=== PATIENT | male | born 1940 | race Caucasian/White ===

== ENCOUNTER 2021-08-08 10:55 | Emergency (ER) | payer OTHER, MEDICAID ==
[~2021-08-08] VITALS: Ht 180.3 cm; Wt 117.9 kg
[2021-08-08 10:57] VITALS: BP 113/85
--- NOTE | 2021-08-08 11:41 | NUR ---
Patient being evaluated by physician at bedside.
[2021-08-08] MEDS ORDERED: IBUPROFEN 400 MG TAB PO ONE (11:50)
[2021-08-08] MEDS ORDERED: NAPR-1704 PO (11:56)
[2021-08-08 12:43] VITALS: BP 113/85
--- NOTE | 2021-08-08 12:43 | NUR ---
Patient discharged with v/s stable. Written and verbal after care instructions given and explained. Patient alert, oriented and verbalized understanding of instructions. Wheel Chair Assisted with to car. All questions addressed prior to discharge. ID band removed. Patient advised to follow up with PMD. Rx of NAPROXEN given. Patient educated on indication of medication including possible reaction and side effects. Opportunity to ask questions provided and answered.
== END 2021-08-08 12:43 | disposition home or self-care (01) ==
LOC: MED 10:55
DX: H92.02 Otalgia, left ear (principal); R05.9 Cough, unspecified; I11.9 Hypertensive heart disease without heart failure
CPT/HCPCS: 99282

== ENCOUNTER 2021-09-15 12:36 | Emergency (ER) | payer OTHER ==
[~2021-09-15] VITALS: Ht 175.3 cm; Wt 108.9 kg
[~2021-09-15 12:36] MED LIST: NAPR-1704 PO
[2021-09-15 12:50] VITALS: BP 132/64
--- NOTE | 2021-09-15 12:54 | NUR ---
PT BIB BLS RUN FROM [facility] C/C RIGHT RIB PAIN. PT C/O RIGHT RIB PAIN WORSE ON INSPIRATION NOTED WITH DRY COUGH. EXERTIONAL SOB NOTED FROM EMT EDOUARDRCARLOS TO ER JESE. 96% ON RA.
[2021-09-15] MEDS ORDERED: MORPHINE SULFATE 4 MG/ML SYR IVP ONE (14:05)
[2021-09-15 15:02] LABS: BASOPHILS # (AUTO) 0.1 K/uL (0.00-0.22); BASOPHILS % (AUTO) 0.7 % (0.0-2.0); EOSINOPHILS # (AUTO) 0.5 K/uL (0-0.4); EOSINOPHILS % (AUTO) 4.9 % (0.0-4.0); HEMATOCRIT 40.9 % (36-52); HEMOGLOBIN 13.7 g/dL (12.0-18.0); LYMPHOCYTES # (AUTO) 0.8 K/uL (2.0-11.5); MEAN CORPUSCULAR HEMOGLOBIN 29 pg (27-31); MEAN CORPUSCULAR HGB CONC 34 g/dL (33-37); MEAN CORPUSCULAR VOLUME 85.5 fL (80-94); MONOCYTES # (AUTO) 0.5 K/uL (0.8-1.0); MONOCYTES % (AUTO) 5.5 % (1.7-9.3); NEUTROPHILS # (AUTO) 7.6 K/uL (1.8-7.7); NEUTROPHILS % (AUTO) 80.9 % (42.2-75.2); PLATELET COUNT (AUTO) 256 K/uL (140-450); RED BLOOD CELL COUNT(AUTO) 4.78 MIL/uL (4.20-6.10); RED CELL DISTRIBUTION WIDTH 14.4 % (11.6-13.7); WHITE BLOOD COUNT (AUTO) 9.4 K/uL (4.8-10.8)
[2021-09-15 15:28] LABS: BILIRUBIN,URINE NEGATIVE (NEGATIVE); BLOOD, URINE TRACE-I (NEGATIVE); COLOR,URINE YELLOW (YELLOW); LEUKOCYTE ESTERASE ,URINE 2+ (NEGATIVE); NITRITE, URINE NEGATIVE (NEGATIVE); PH,URINE 5.5 (5.0-9.0); UGLUCOSE NEGATIVE (NEGATIVE)
[2021-09-15 15:33] LABS: APPEARANCE,URINE HAZY (CLEAR)
[2021-09-15 15:35] LABS: ANION GAP 12.5 (8-16); ASPARTATE AMINOTRANSFERASE 20 U/L (15-37); CARBON DIOXIDE 28.7 mmol/L (21-32); CHLORIDE 102 mmol/L (98-107); CREATININE 1.1 mg/dL (0.6-1.3); GLUCOSE 106 mg/dL (74-106); LIPASE 163 U/L (73-393); POTASSIUM 4.2 mmol/L (3.5-5.1); SODIUM SERUM 139 mmol/L (136-145); TOTAL BILIRUBIN 0.3 mg/dL (0.0-1.0); UREA NITROGEN, BLOOD 17 mg/dL (7-18)
[2021-09-15 15:38] LABS: RBC,URINE 0-5 /HPF (0-5); WBC,URINE TOO MANY TO COUNT /HPF (0-5)
[2021-09-15] MEDS ORDERED: LIDOCAINE 5% 1 EA PATCH TP STA (17:56)
[2021-09-15] MEDS ORDERED: LEVO750T51 PO (18:08)
[2021-09-15] MEDS ORDERED: LID5T TP (18:08)
[2021-09-15] MEDS ORDERED: FAMO-90 PO (18:08)
[2021-09-15] MEDS ORDERED: ACET-1194 PO (18:08)
[2021-09-15] MEDS ORDERED: cefTRIAXone 1,000 MG VIAL ONE (18:14)
[2021-09-15 18:37] VITALS: BP 132/70
--- NOTE | 2021-09-15 18:37 | NUR ---
Patient discharged with v/s stable. Written and verbal after care instructions given and explained. Patient alert, oriented and verbalized understanding of instructions. with to car. All questions addressed prior to discharge. ID band removed. Patient advised to follow up with PMD. Rx given. Patient educated on indication of medication including possible reaction and side effects. Opportunity to ask questions provided and answered.
== END 2021-09-15 18:37 | disposition home or self-care (01) ==
LOC: MED 12:36
DX: R07.81 Pleurodynia (principal); R07.9 Chest pain, unspecified
CPT/HCPCS: 36415; 71045; 76705; 80053; 81001; 83690; 85025; 87086; 93005; 96365; 96375; 99285; J0696; J2270; Q0092

== ENCOUNTER 2021-12-31 15:26 | Emergency (ER) | payer OTHER, MEDICAID ==
[~2021-12-31] VITALS: Ht 177.8 cm; Wt 108.9 kg
[~2021-12-31 15:26] MED LIST changes: +ACET-1194 PO; +FAMO-90 PO; +LEVO750T51 PO; +LID5T TP
[2021-12-31 15:40] VITALS: BP 141/56
[2021-12-31 16:13] LABS: BASOPHILS % (AUTO) 0.3 % (0.0-2.0); EOSINOPHILS # (AUTO) 0.1 K/uL (0-0.4); HEMATOCRIT 40.1 % (36-52); HEMOGLOBIN 13.3 g/dL (12.0-18.0); LYMPHOCYTES # (AUTO) 3.2 K/uL (2.0-11.5); LYMPHOCYTES % (AUTO) 31.6 % (20.5-51.1); MEAN CORPUSCULAR HEMOGLOBIN 29 pg (27-31); MEAN CORPUSCULAR HGB CONC 33 g/dL (33-37); MEAN CORPUSCULAR VOLUME 86.5 fL (80-94); MONOCYTES # (AUTO) 1.6 K/uL (0.8-1.0); NEUTROPHILS # (AUTO) 5.1 K/uL (1.8-7.7); NEUTROPHILS % (AUTO) 51.1 % (42.2-75.2); PLATELET COUNT (AUTO) 236 K/uL (140-450); RED BLOOD CELL COUNT(AUTO) 4.63 MIL/uL (4.20-6.10); RED CELL DISTRIBUTION WIDTH 13.8 % (11.6-13.7); WHITE BLOOD COUNT (AUTO) 10.1 K/uL (4.8-10.8)
[2021-12-31 16:37] LABS: ANION GAP 12.4 (8-16); ASPARTATE AMINOTRANSFERASE 18 U/L (15-37); CARBON DIOXIDE 26.7 mmol/L (21-32); CHLORIDE 103 mmol/L (98-107); CREATININE 1.2 mg/dL (0.6-1.3); GLUCOSE 109 mg/dL (74-106); POTASSIUM 4.1 mmol/L (3.5-5.1); SODIUM SERUM 138 mmol/L (136-145); TOTAL BILIRUBIN 0.3 mg/dL (0.0-1.0); UREA NITROGEN, BLOOD 15 mg/dL (7-18)
[2021-12-31 22:23] VITALS: BP 131/53
== END 2021-12-31 22:22 | disposition home or self-care (01) ==
LOC: MED 15:26
DX: R06.02 Shortness of breath (principal); Z20.822 Contact with and (suspected) exposure to COVID-19; I11.0 Hypertensive heart disease with heart failure; I50.9 Heart failure, unspecified; Z87.448 Personal history of other diseases of urinary system; Z79.899 Other long term (current) drug therapy; Z79.2 Long term (current) use of antibiotics; Z79.1 Long term (current) use of non-steroidal anti-inflammatories (NSAID)
CPT/HCPCS: 36415; 71045; 80053; 83605; 83880; 84484; 85025; 87040; 93005; 99285

== ENCOUNTER 2023-05-03 07:50 | Emergency (ER) | payer OTHER ==
[~2023-05-03] VITALS: Ht 170.2 cm; Wt 108.9 kg
[~2023-05-03 07:50] MED LIST changes: -LEVO750T51 PO; +LEVO750T75 PO
[2023-05-03 07:54] VITALS: BP 120/74; PULSE 62; RESP 18; TEMP 98.5; O2SAT 98
[2023-05-03] MEDS ORDERED: HYDROcodone/APAP 5/325 MG 1 TAB TAB PO ONE (08:15)
[2023-05-03] MEDS ORDERED: KETOROLAC 30 MG/ML VIAL IM ONE (08:15)
[2023-05-03 08:20] VITALS: O2SAT 98
[2023-05-03 09:05] LABS: BASOPHILS # (AUTO) 0.1 K/uL (0.00-0.22); BASOPHILS % (AUTO) 0.7 % (0.0-2.0); EOSINOPHILS # (AUTO) 0.1 K/uL (0-0.4); EOSINOPHILS % (AUTO) 1.2 % (0.0-4.0); HEMATOCRIT 36.7 % (36-52); HEMOGLOBIN 12.2 g/dL (12.0-18.0); LYMPHOCYTES % (AUTO) 31.2 % (20.5-51.1); MEAN CORPUSCULAR HEMOGLOBIN 29 pg (27-31); MEAN CORPUSCULAR HGB CONC 33 g/dL (33-37); MEAN CORPUSCULAR VOLUME 87.1 fL (80-94); MONOCYTES # (AUTO) 1.5 K/uL (0.8-1.0); MONOCYTES % (AUTO) 15.5 % (1.7-9.3); NEUTROPHILS # (AUTO) 4.9 K/uL (1.8-7.7); NEUTROPHILS % (AUTO) 51.4 % (42.2-75.2); PLATELET COUNT (AUTO) 240 K/uL (140-450); RED BLOOD CELL COUNT(AUTO) 4.21 MIL/uL (4.20-6.10); RED CELL DISTRIBUTION WIDTH 14.4 % (11.6-13.7); WHITE BLOOD COUNT (AUTO) 9.5 K/uL (4.8-10.8)
[2023-05-03 09:30] LABS: C-REACTIVE PROTEIN QUANT < 0.2 mg/dL (0.0-0.9)
[2023-05-03 09:34] LABS: ALANINE AMINOTRANSFERASE 27 U/L (12-78); ALBUMIN 3.8 g/dL (3.4-5.0); ALKALINE PHOSPHATASE 58 U/L (50-136); ANION GAP 11.4 (8-16); ASPARTATE AMINOTRANSFERASE 21 U/L (15-37); CALCIUM 9.2 mg/dL (8.5-10.1); CARBON DIOXIDE 28.1 mmol/L (21-32); CHLORIDE 105 mmol/L (98-107); CREATININE 1.4 mg/dL (0.6-1.3); GLUCOSE 120 mg/dL (74-106); POTASSIUM 4.5 mmol/L (3.5-5.1); SODIUM SERUM 140 mmol/L (136-145); TOTAL BILIRUBIN 0.4 mg/dL (0.0-1.0); TOTAL PROTEIN, SERUM 7.1 g/dL (6.4-8.2); UREA NITROGEN, BLOOD 32 mg/dL (7-18)
[2023-05-03] MEDS ORDERED: DICL100G32 TP (10:18)
[2023-05-03] MEDS ORDERED: IBUP-1842 PO (10:18)
[2023-05-03 11:01] VITALS: BP 134/80; PULSE 71; RESP 17; O2SAT 98
== END 2023-05-03 11:01 | disposition home or self-care (01) ==
LOC: MED 07:50
DX: M75.102 Unspecified rotator cuff tear or rupture of left shoulder, not specified as traumatic (principal); I44.0 Atrioventricular block, first degree; M19.90 Unspecified osteoarthritis, unspecified site; I11.0 Hypertensive heart disease with heart failure; I50.9 Heart failure, unspecified; Z87.448 Personal history of other diseases of urinary system; Z79.899 Other long term (current) drug therapy; Z79.1 Long term (current) use of non-steroidal anti-inflammatories (NSAID); Z79.2 Long term (current) use of antibiotics
CPT/HCPCS: 36415; 71045; 73030; 80053; 83880; 84484; 85025; 85651; 86140; 93005; 96372; 99285; J1885

== ENCOUNTER 2023-05-16 03:50 | Emergency (ER) | payer OTHER ==
[~2023-05-16] VITALS: Ht 170.2 cm; Wt 97.5 kg
[2023-05-16 03:50] VITALS: BP 113/52; PULSE 62; RESP 16; TEMP 97.8; O2SAT 96
[~2023-05-16 03:50] MED LIST changes: +DICL100G32 TP; +IBUP-1842 PO
[2023-05-16] MEDS ORDERED: KETOROLAC 30 MG/ML VIAL IVP ONE (05:25)
[2023-05-16 06:28] LABS: BASOPHILS # (AUTO) 0.1 K/uL (0.00-0.22); BASOPHILS % (AUTO) 0.7 % (0.0-2.0); EOSINOPHILS # (AUTO) 0.1 K/uL (0-0.4); EOSINOPHILS % (AUTO) 1.2 % (0.0-4.0); HEMATOCRIT 36.7 % (36-52); HEMOGLOBIN 12.2 g/dL (12.0-18.0); LYMPHOCYTES # (AUTO) 2.5 K/uL (2.0-11.5); LYMPHOCYTES % (AUTO) 25.2 % (20.5-51.1); MEAN CORPUSCULAR HEMOGLOBIN 29 pg (27-31); MEAN CORPUSCULAR HGB CONC 33 g/dL (33-37); MEAN CORPUSCULAR VOLUME 87.2 fL (80-94); MONOCYTES # (AUTO) 1.3 K/uL (0.8-1.0); MONOCYTES % (AUTO) 13.4 % (1.7-9.3); NEUTROPHILS # (AUTO) 5.8 K/uL (1.8-7.7); NEUTROPHILS % (AUTO) 59.5 % (42.2-75.2); PLATELET COUNT (AUTO) 242 K/uL (140-450); RED BLOOD CELL COUNT(AUTO) 4.21 MIL/uL (4.20-6.10); RED CELL DISTRIBUTION WIDTH 14.2 % (11.6-13.7); WHITE BLOOD COUNT (AUTO) 9.8 K/uL (4.8-10.8)
[2023-05-16 07:00] LABS: ALANINE AMINOTRANSFERASE 26 U/L (12-78); ALBUMIN 3.7 g/dL (3.4-5.0); ALKALINE PHOSPHATASE 63 U/L (50-136); ANION GAP 13.6 (8-16); ASPARTATE AMINOTRANSFERASE 21 U/L (15-37); CALCIUM 9.3 mg/dL (8.5-10.1); CARBON DIOXIDE 28.9 mmol/L (21-32); CHLORIDE 106 mmol/L (98-107); CREATININE 1.3 mg/dL (0.6-1.3); GLUCOSE 104 mg/dL (74-106); LIPASE 53 U/L (16-77); POTASSIUM 4.5 mmol/L (3.5-5.1); SODIUM SERUM 144 mmol/L (136-145); TOTAL BILIRUBIN 0.3 mg/dL (0.0-1.0); TOTAL PROTEIN, SERUM 7.4 g/dL (6.4-8.2); UREA NITROGEN, BLOOD 36 mg/dL (7-18)
[2023-05-16] MEDS ORDERED: AMOX1TAB8 PO (07:03)
[2023-05-16 07:36] LABS: APPEARANCE,URINE CLEAR (CLEAR); BILIRUBIN,URINE NEGATIVE (NEGATIVE); BLOOD, URINE 2+ (NEGATIVE); COLOR,URINE YELLOW (YELLOW); LEUKOCYTE ESTERASE ,URINE 1+ (NEGATIVE); NITRITE, URINE NEGATIVE (NEGATIVE); PROTEIN,URINE TRACE (NEGATIVE); UGLUCOSE NEGATIVE (NEGATIVE); UROBILINOGEN,URINE 0.2 EU/dL (0.2 - 1)
[2023-05-16 07:46] LABS: BACTERIA,URINE 1+ /HPF (None Seen); SQUAMOUS EPITHELIAL CELL,UR 0-3 (FEW) /LPF (0-3 (FEW)); WBC,URINE 20-60 /HPF (0-5)
[2023-05-16 11:11] VITALS: BP 111/56; PULSE 59; RESP 18; TEMP 97.8; O2SAT 98
== END 2023-05-16 11:19 | disposition home or self-care (01) ==
LOC: MED 03:50
DX: K57.32 Diverticulitis of large intestine without perforation or abscess without bleeding (principal); I11.0 Hypertensive heart disease with heart failure; I50.9 Heart failure, unspecified; Z87.448 Personal history of other diseases of urinary system; Z79.899 Other long term (current) drug therapy; Z79.1 Long term (current) use of non-steroidal anti-inflammatories (NSAID); Z79.2 Long term (current) use of antibiotics
CPT/HCPCS: 36415; 74176; 80053; 81001; 83690; 85025; 87086; 96374; 99285; J1885

== ENCOUNTER 2023-06-28 07:59 | Inpatient (IN) | payer OTHER ==
[2023-06-28] VITALS (7 sets, daily range): BP systolic 124; BP diastolic 41; PULSE 71–87; RESP 20–36; TEMP 97.9; O2SAT 95–100
[~2023-06-28] VITALS: Ht 172.7 cm; Wt 99.8 kg
[~2023-06-28 07:59] MED LIST changes: +AMOX1TAB8 PO
[2023-06-28] MEDS ORDERED: IPRATROPIUM 0.02% 0.5 MG/2.5 ML NEBU INH ONE ×2 (08:25→10:15)
[2023-06-28] MEDS ORDERED: ALBUTEROL 0.083% 2.5 MG/3 ML NEBU INH ONE ×2 (08:25→10:15)
[2023-06-28 09:06] LABS: BASOPHILS % (AUTO) 0.2 % (0.0-2.0); EOSINOPHILS # (AUTO) 0.1 K/uL (0-0.4); EOSINOPHILS % (AUTO) 1.3 % (0.0-4.0); HEMATOCRIT 35.6 % (36-52); HEMOGLOBIN 11.5 g/dL (12.0-18.0); LYMPHOCYTES % (AUTO) 37.8 % (20.5-51.1); MEAN CORPUSCULAR HEMOGLOBIN 29 pg (27-31); MEAN CORPUSCULAR HGB CONC 33 g/dL (33-37); MEAN CORPUSCULAR VOLUME 88.6 fL (80-94); MONOCYTES % (AUTO) 27.9 % (1.7-9.3); NEUTROPHILS # (AUTO) 3.5 K/uL (1.8-7.7); NEUTROPHILS % (AUTO) 32.8 % (42.2-75.2); PLATELET COUNT (AUTO) 207 K/uL (140-450); RED BLOOD CELL COUNT(AUTO) 4.01 MIL/uL (4.20-6.10); RED CELL DISTRIBUTION WIDTH 14.1 % (11.6-13.7); WHITE BLOOD COUNT (AUTO) 10.6 K/uL (4.8-10.8)
[2023-06-28 09:23] LABS: CREATINE KINASE, TOTAL 120 U/L (39-308)
[2023-06-28 09:43] LABS: ANION GAP 11.1 (8-16); CALCIUM 8.5 mg/dL (8.5-10.1); CARBON DIOXIDE 26.4 mmol/L (21-32); CHLORIDE 105 mmol/L (98-107); CREATININE 1.5 mg/dL (0.6-1.3); GLUCOSE 121 mg/dL (74-106); POTASSIUM 3.5 mmol/L (3.5-5.1); SODIUM SERUM 139 mmol/L (136-145); UREA NITROGEN, BLOOD 10 mg/dL (7-18)
[2023-06-28 09:47] LABS: FLU A ANTIGEN negative (NEGATIVE); FLU B ANTIGEN negative (NEGATIVE)
[2023-06-28 09:49] LABS: ALANINE AMINOTRANSFERASE 25 U/L (12-78); ALBUMIN 3.8 g/dL (3.4-5.0); ALKALINE PHOSPHATASE 75 U/L (50-136); ASPARTATE AMINOTRANSFERASE 22 U/L (15-37); TOTAL BILIRUBIN 0.3 mg/dL (0.0-1.0); TOTAL PROTEIN, SERUM 7.1 g/dL (6.4-8.2)
[2023-06-28 09:53] LABS: LACTIC ACID 2.3 mmol/L (0.4-2.0)
[2023-06-28] MEDS ORDERED: NACL 0.9% 500 ML IV ONE (10:00)
[2023-06-28] MEDS ORDERED: MAG SULF 2000 MG/WATER PREMIX 50 ML IV ONE (10:15)
[2023-06-28] MEDS ORDERED: ACETAMINOPHEN 325 MG TAB PO ONE (10:15)
[2023-06-28] MEDS ORDERED: LIDOCAINE 4% 1 EA PATCH TP ONE (10:15)
[2023-06-28] MEDS ORDERED: methylPREDNISolone SS 125 MG/2 ML VIAL IVP ONE (10:15)
[2023-06-28] MEDS ORDERED: cefTRIAXone 1,000 MG VIAL ONE (10:36)
[2023-06-28] MEDS ORDERED: ACETAMINOPHEN EXTRA STRENGTH 500 MG TAB PO PRN (10:55)
[2023-06-28] MEDS ORDERED: NACL 0.9% 1,000 ML IV SCH ×2 (10:55→13:55)
[2023-06-28] MEDS ORDERED: methylPREDNISolone SS 40 MG/ML VIAL IVP SCH (13:00)
[2023-06-28] MEDS ORDERED: ALBUTEROL SULFATE/IPRATROPIU 3 ML SOL IH SCH (13:00)
[2023-06-28] MEDS ORDERED: PIPERACILLIN/TAZOBACTAM 3.375 GM in DEXTROSE 5% 50 ML IV SCH ×5 (13:00→14:05)
[2023-06-28] MEDS ORDERED: PIPERACILLIN/TAZOBACTAM 3.375 GM VIAL IV ONE ×2 (13:03→21:03)
[2023-06-28] MEDS ORDERED: HYDROcodone/APAP 5/325 MG 1 TAB TAB PO PRN (14:30)
[2023-06-28] MEDS: MORPHINE SULFATE 2 MG/ML SYR IVP PRN (16:28)
[2023-06-28] MEDS: ALBUTEROL SULFATE/IPRATROPIU 3 ML SOL IH PRN ×2 (16:33→22:55)
[2023-06-28] MEDS ORDERED: FUROSEMIDE 20 MG/2 ML VIAL IVP SCH (21:00)
[2023-06-28] MEDS: PIPERACILLIN/TAZOBACTAM 3.375 GM in DEXTROSE 5% 50 ML IV SCH (21:29)
[2023-06-28] MEDS: methylPREDNISolone SS 40 MG/ML VIAL IVP SCH (21:30)
[2023-06-28] MEDS: FUROSEMIDE 20 MG/2 ML VIAL IVP SCH (21:30)
[2023-06-28 22:16] LABS: APPEARANCE,URINE CLEAR (CLEAR); BILIRUBIN,URINE NEGATIVE (NEGATIVE); BLOOD, URINE NEGATIVE (NEGATIVE); COLOR,URINE YELLOW (YELLOW); LEUKOCYTE ESTERASE ,URINE NEGATIVE (NEGATIVE); NITRITE, URINE NEGATIVE (NEGATIVE); PH,URINE 5.5 (5.0-9.0); PROTEIN,URINE TRACE (NEGATIVE); UGLUCOSE NEGATIVE (NEGATIVE); UROBILINOGEN,URINE 0.2 EU/dL (0.2 - 1)
[2023-06-29] VITALS (10 sets, daily range): BP systolic 105–142; BP diastolic 49–92; PULSE 60–89; RESP 18–70; TEMP 97.2–98; O2SAT 93–98
[2023-06-29] MEDS: ACETAMINOPHEN 325 MG TAB PO PRN (02:34)
[2023-06-29] MEDS ORDERED: PIPERACILLIN/TAZOBACTAM 3.375 GM VIAL IV ONE (04:34)
[2023-06-29] MEDS: methylPREDNISolone SS 40 MG/ML VIAL IVP SCH ×3 (04:38→21:34)
[2023-06-29] MEDS: PIPERACILLIN/TAZOBACTAM 3.375 GM in DEXTROSE 5% 50 ML IV SCH ×3 (04:39→21:33)
[2023-06-29] MEDS: MORPHINE SULFATE 2 MG/ML SYR IVP PRN (06:19)
[2023-06-29 07:11] LABS: ANION GAP 15.5 (8-16); CALCIUM 8.6 mg/dL (8.5-10.1); CARBON DIOXIDE 25.7 mmol/L (21-32); CHLORIDE 104 mmol/L (98-107); CREATININE 1.4 mg/dL (0.6-1.3); GLUCOSE 158 mg/dL (74-106); POTASSIUM 4.2 mmol/L (3.5-5.1); SODIUM SERUM 141 mmol/L (136-145); UREA NITROGEN, BLOOD 32 mg/dL (7-18)
[2023-06-29 07:18] LABS: BASOPHILS # (AUTO) 0.2 K/uL (0.00-0.22); BASOPHILS % (AUTO) 2.2 % (0.0-2.0); HEMATOCRIT 35.3 % (36-52); HEMOGLOBIN 11.7 g/dL (12.0-18.0); LYMPHOCYTES # (AUTO) 0.7 K/uL (2.0-11.5); LYMPHOCYTES % (AUTO) 7.4 % (20.5-51.1); MEAN CORPUSCULAR HEMOGLOBIN 29 pg (27-31); MEAN CORPUSCULAR HGB CONC 33 g/dL (33-37); MEAN CORPUSCULAR VOLUME 86.8 fL (80-94); MONOCYTES # (AUTO) 0.9 K/uL (0.8-1.0); NEUTROPHILS # (AUTO) 7.8 K/uL (1.8-7.7); NEUTROPHILS % (AUTO) 81.4 % (42.2-75.2); PLATELET COUNT (AUTO) 225 K/uL (140-450); RED BLOOD CELL COUNT(AUTO) 4.06 MIL/uL (4.20-6.10); RED CELL DISTRIBUTION WIDTH 13.6 % (11.6-13.7)
[2023-06-29] MEDS ORDERED: ENOXAPARIN 40 MG/0.4 ML SYR SUBQ SCH (09:00)
[2023-06-29] MEDS ORDERED: FAMOTIDINE 20 MG TAB PO SCH (09:00)
[2023-06-29] MEDS: FUROSEMIDE 20 MG/2 ML VIAL IVP SCH (09:01)
[2023-06-29 09:17] LABS: WHITE BLOOD COUNT (AUTO) 9.5 K/uL (4.8-10.8)
[2023-06-29] MEDS ORDERED: MAG SULF 2000 MG/WATER PREMIX 50 ML IV SCH (12:00)
[2023-06-29] MEDS: POLYETHYLENE GLYCOL 17 GM/PKT PO SCH (21:34)
[2023-06-29] MEDS: FUROSEMIDE 40 MG/4 ML VIAL IVP SCH (21:34)
[2023-06-30] VITALS (10 sets, daily range): BP systolic 110–153; BP diastolic 41–90; PULSE 58–86; RESP 18–70; TEMP 96.9–98.2; O2SAT 94–96
[2023-06-30] MEDS: ACETAMINOPHEN 325 MG TAB PO PRN ×3 (00:52→21:09)
[2023-06-30] MEDS: PIPERACILLIN/TAZOBACTAM 3.375 GM in DEXTROSE 5% 50 ML IV SCH ×3 (05:03→21:15)
[2023-06-30] MEDS: methylPREDNISolone SS 40 MG/ML VIAL IVP SCH ×3 (05:03→21:19)
[2023-06-30] MEDS: BENZONATATE 100 MG CAPLF PO PRN ×2 (05:05→13:06)
[2023-06-30 07:07] LABS: CALCIUM 9.1 mg/dL (8.5-10.1); CHLORIDE 102 mmol/L (98-107); CREATININE 1.5 mg/dL (0.6-1.3); GLUCOSE 130 mg/dL (74-106); SODIUM SERUM 140 mmol/L (136-145); UREA NITROGEN, BLOOD 47 mg/dL (7-18)
[2023-06-30] MEDS: FUROSEMIDE 40 MG/4 ML VIAL IVP SCH ×2 (09:12→21:19)
[2023-06-30] MEDS: SENNA 8.6 MG TAB PO SCH (09:12)
[2023-06-30] MEDS: POLYETHYLENE GLYCOL 17 GM/PKT PO SCH ×2 (09:12→21:19)
[2023-06-30] MEDS: PANTOPRAZOLE 40 MG INJ VIAL IVP SCH (09:16)
[2023-07-01] VITALS: BP 142/55; PULSE 55; PULSE 60; RESP 20; TEMP 96.9; O2SAT 95
[2023-07-01 04:00] VITALS: BP 158/74; PULSE 53; PULSE 64; RESP 20; TEMP 97.1; O2SAT 96
[2023-07-01] MEDS: methylPREDNISolone SS 40 MG/ML VIAL IVP SCH ×2 (04:24→14:53)
[2023-07-01] MEDS: PIPERACILLIN/TAZOBACTAM 3.375 GM in DEXTROSE 5% 50 ML IV SCH ×2 (04:24→14:52)
[2023-07-01 07:49] LABS: ANION GAP 10.6 (8-16); CALCIUM 9.2 mg/dL (8.5-10.1); CHLORIDE 98 mmol/L (98-107); CREATININE 1.6 mg/dL (0.6-1.3); GLUCOSE 135 mg/dL (74-106); POTASSIUM 4.6 mmol/L (3.5-5.1); SODIUM SERUM 137 mmol/L (136-145); UREA NITROGEN, BLOOD 27 mg/dL (7-18)
[2023-07-01 08:00] VITALS: BP 153/80; PULSE 57; RESP 18; RESP 20; TEMP 96.9; O2SAT 95; O2SAT 98
[2023-07-01] MEDS: SENNA 8.6 MG TAB PO SCH (08:59)
[2023-07-01] MEDS: POLYETHYLENE GLYCOL 17 GM/PKT PO SCH (08:59)
[2023-07-01] MEDS: FUROSEMIDE 40 MG/4 ML VIAL IVP SCH (08:59)
[2023-07-01] MEDS: PANTOPRAZOLE 40 MG INJ VIAL IVP SCH (08:59)
[2023-07-01] MEDS: MORPHINE SULFATE 2 MG/ML SYR IVP PRN (09:27)
[2023-07-01 12:00] VITALS: BP 140/67; PULSE 67; RESP 18; TEMP 97.1; O2SAT 98
[2023-07-01] MEDS ORDERED: PRED20TA5 PO (12:46)
[2023-07-01] MEDS ORDERED: ALBU0.0912 IH (12:48)
[2023-07-01] MEDS ORDERED: LAS20I IVP (12:48)
[2023-07-01] MEDS ORDERED: ALBU3SOL83 IH (12:48)
[2023-07-01] MEDS ORDERED: FAMO-90 PO (12:50)
[2023-07-01] MEDS ORDERED: AMOX1TAB8 PO (12:50)
[2023-07-01] MEDS ORDERED: POLY17PD46 PO (12:50)
[2023-07-01] MEDS ORDERED: BENZ100C6 PO (12:56)
[2023-07-01] MEDS ORDERED: FUROSEMIDE 40 MG/4 ML VIAL IVP SCH (21:00)
[2023-07-02] MEDS ORDERED: IBUP-2213 PO (07:33)
[2023-07-02] MEDS ORDERED: ACET-503 PO (07:33)
[2023-07-02] MEDS ORDERED: PRED20TA5 PO (07:33)
== END 2023-07-01 17:40 | disposition home or self-care (01) | DRG 177 ==
LOC: MED 07:59 → MTU 11:07 → UNDOADMIN 11:07 → MTU 13:56
PROVIDERS: ADMIT Family Medicine; ATTEND Family Medicine
DX: J15.69 Pneumonia due to other Gram-negative bacteria (principal); J96.01 Acute respiratory failure with hypoxia; E66.2 Morbid (severe) obesity with alveolar hypoventilation; E87.20 Acidosis, unspecified; J15.9 Unspecified bacterial pneumonia; Z20.822 Contact with and (suspected) exposure to COVID-19; I50.9 Heart failure, unspecified; J98.01 Acute bronchospasm; E83.42 Hypomagnesemia; Z68.33 Body mass index [BMI] 33.0-33.9, adult
CPT/HCPCS: 36415; 36600; 71045; 76770; 80048; 80053; 81003; 82550; 83605; 83690; 83735; 83880; 84300; 84484; 85025; 87040; 87081; 92526; 93005; 94640; 96365; 96366; 96367; 96375; 97112; 97116; 97163-GP; 97530; 99291; C9113; J0696; J1644; J1940; J2270; J2543; J2920; J2930; J3475; J7060; J7613; J7644; Q0092

== ENCOUNTER 2023-07-02 05:20 | Emergency (ER) | payer OTHER ==
[~2023-07-02] VITALS: Ht 172.7 cm; Wt 95.3 kg
[~2023-07-02 05:20] MED LIST changes: -ACET-1194 PO; +ALBU0.0912 IH; +ALBU3SOL83 IH; +BENZ100C6 PO; -DICL100G32 TP; -IBUP-1842 PO; +LAS20I IVP; -LEVO750T75 PO; -LID5T TP; -NAPR-1704 PO; +POLY17PD46 PO; +PRED20TA5 PO
[2023-07-02 05:27] VITALS: BP 192/90; PULSE 48; RESP 16; TEMP 98.2; O2SAT 95
[2023-07-02] MEDS ORDERED: ALBUTEROL 0.083% 2.5 MG/3 ML NEBU INH ONE (05:45)
[2023-07-02 05:47] VITALS: PULSE 71; RESP 27; O2SAT 96
[2023-07-02] MEDS ORDERED: KETOROLAC 60 MG/2 ML VIAL IM ONE (06:20)
[2023-07-02] MEDS ORDERED: ACET-503 PO (07:33)
[2023-07-02] MEDS ORDERED: PRED20TA5 PO (07:33)
[2023-07-02] MEDS ORDERED: IBUP-2213 PO (07:33)
[2023-07-02] MEDS ORDERED: MORPHINE SULFATE 4 MG/ML SYR IM ONE (07:50)
[2023-07-02 07:53] VITALS: BP 118/59; PULSE 84; RESP 19; TEMP 98.2; O2SAT 96
== END 2023-07-02 08:46 | disposition home or self-care (01) ==
LOC: MED 05:20
DX: R07.89 Other chest pain (principal); R05.9 Cough, unspecified; I13.0 Hypertensive heart and chronic kidney disease with heart failure and stage 1 through stage 4 chronic kidney disease, or unspecified chronic kidney disease; N18.9 Chronic kidney disease, unspecified
CPT/HCPCS: 71045; 94640; 96372; 99284; J1885; J2270; J7613; Q0092